=== PATIENT | male | born 1965 | race Caucasian/White ===

== ENCOUNTER 2017-11-02 16:00 | Emergency (ER) | payer SELFPAY ==
[~2017-11-02 16:00] MED LIST: ASPI325T PO; PRIL20TA2 PO
[2017-11-02 16:01] VITALS: BP 132/79; PULSE 84; RESP 16; TEMP 97.3; O2SAT 99
[2017-11-02 16:15] VITALS: BP 134/74; PULSE 84; RESP 22; O2SAT 98
[2017-11-02] MEDS ORDERED: ASPIRIN 81 MG CHEW TAB PO ONE (16:30)
[2017-11-02] MEDS ORDERED: SODIUM CHLORIDE 0.9% FLUSH 10 ML FLUSH IVF PRN (16:30)
--- NOTE | 2017-11-02 16:34 | PD ---
HPI Chief Complaint: Respiratory Symptoms Time Seen by Provider: 16:11 Travel History International Travel<30 days: No Contact w/Intl Traveler<30days: No Traveled to known affect area: No History of Present Illness HPI 52-year-old male presents to the emergency room for evaluation of nonradiating chest pain, shortness of breath, headache. Patient describes the chest pain as the feeling when you overexert yourself and your chest feels tight/burning. Pain started after sleeping for 5 hours in a room that was just cleaned with bleach. He has associated nausea without vomiting. Denies any history of heart disease. He has one stent that was placed while they were in his heart but not because he had an ME. He has aortic valve replacement. He was diagnosed with COPD but states he believes the diagnosis was also because he does well without medications. Patient still smokes. He is supposed to take metformin, lisinopril, and amlodipine that he is about to run out of his medication because he is traveling. Normally lives in [place] but is moving to [place]. Patient has been sick with a nonproductive cough for the past week. He denies fever, chills, sore throat, or worsening of his chronic nasal congestion. PFSH Past Medical History Cardiac Catheterization: Yes Cardiovascular Problems: Yes Diabetes: Yes (TYPE II ) Patient Takes Glucophage: No Respiratory: Yes Past Surgical History Other Surgery: Yes (LT. ARM SX.) Social History Alcohol Use: Yes (5 DRINKS A DAY) Tobacco Use: Yes (1PPD) Substance Use: No Allergies-Medications (Allergen,Severity, Reaction): Coded Allergies: No Known Allergies (Verified Allergy, Mild, 11/02/17) Reported Meds & Prescriptions Reported Meds & Active Scripts Active Tessalon Perles (Benzonatate) 100 Mg Cap 100 Mg PO TID PRN Ventolin Hfa 18 GM Inh (Albuterol Sulfate) 90 Mcg/Act Aer 2 Puff INH Q6H PRN Review of Systems Except as stated in HPI: all other systems reviewed are Neg Physical Exam Narrative GENERAL: Well-nourished, well-developed male in no acute distress. Afebrile. Ambulatory. SKIN: Focused skin assessment warm/dry. HEAD: Normocephalic. EYES: No scleral icterus. No injection or drainage. NECK: Supple, trachea midline. No JVD or lymphadenopathy. CARDIOVASCULAR: Regular rate and rhythm without murmurs, gallops, or rubs. RESPIRATORY: Breath sounds equal bilaterally. No accessory muscle use. No crackles, rales, wheezes, or rhonchi. PSYCHIATRIC: No delusional thought processes. No hallucinations. Data Data Last Documented VS Vital Signs Date Time Temp Pulse Resp B/P (MAP) Pulse Ox O2 Delivery O2 Flow Rate FiO2 11/02/17 16:51 98 Nasal Cannula 2.00 11/02/17 16:15 84 22 11/02/17 16:01 97.3 Orders Orders Electrocardiogram (11/02/17 16:22) Ckmb (Isoenzyme) Profile (11/02/17 16:22) Complete Blood Count With Diff (11/02/17 16:22) Comprehensive Metabolic Panel (11/02/17 16:22) Magnesium (Mg) (11/02/17 16:22) Prothrombin Time / Inr (Pt) (11/02/17 16:22) Act Partial Throm Time (Ptt) (11/02/17 16:22) Troponin I (11/02/17 16:22) Ecg Monitoring (11/02/17 16:22) Bilateral Bp Monitoring (11/02/17 16:22) Iv Access Insert/Monitor (11/02/17 16:22) Oximetry (11/02/17 16:22) Oxygen Administration (11/02/17 16:22) Aspirin Chew (Aspirin Chew) (11/02/17 16:30) Sodium Chloride 0.9% Flush (Ns Flush) (11/02/17 16:30) Chest, Pa & Lat (11/02/17 16:22) Methylprednisolone So Succ Inj (Solumedr (11/02/17 18:00) Insulin Human Regular Inj (Novolin R Inj (11/02/17 18:15) Albuterol-Ipratropium Neb (Duoneb Neb) (11/02/17 18:15) Labs Laboratory Tests Test 11/02/17 16:50 White Blood Count 8.9 TH/MM3 Red Blood Count 4.78 MIL/MM3 Hemoglobin 15.4 GM/DL Hematocrit 43.4 % Mean Corpuscular Volume 90.7 FL Mean Corpuscular Hemoglobin 32.2 PG Mean Corpuscular Hemoglobin Concent 35.5 % Red Cell Distribution Width 13.2 % Platelet Count 193 TH/MM3 Mean Platelet Volume 8.4 FL Neutrophils (%) (Auto) 56.2 % Lymphocytes (%) (Auto) 35.4 % Monocytes (%) (Auto) 6.4 % Eosinophils (%) (Auto) 1.5 % Basophils (%) (Auto) 0.5 % Neutrophils # (Auto) 5.0 TH/MM3 Lymphocytes # (Auto) 3.1 TH/MM3 Monocytes # (Auto) 0.6 TH/MM3 Eosinophils # (Auto) 0.1 TH/MM3 Basophils # (Auto) 0.0 TH/MM3 CBC Comment DIFF FINAL Differential Comment Prothrombin Time 10.2 SEC Prothromb Time International Ratio 1.0 RATIO Activated Partial Thromboplast Time 27.1 SEC Blood Urea Nitrogen 11 MG/DL Creatinine 1.40 MG/DL Random Glucose 442 MG/DL Total Protein 6.9 GM/DL Albumin 3.4 GM/DL Calcium Level 8.9 MG/DL Magnesium Level 1.8 MG/DL Alkaline Phosphatase 124 U/L Aspartate Amino Transf (AST/SGOT) 11 U/L Alanine Aminotransferase (ALT/SGPT) 31 U/L Total Bilirubin 0.3 MG/DL Sodium Level 134 MEQ/L Potassium Level 3.9 MEQ/L Chloride Level 101 MEQ/L Carbon Dioxide Level 25.4 MEQ/L Anion Gap 8 MEQ/L Estimat Glomerular Filtration Rate 53 ML/MIN Total Creatine Kinase 86 U/L Troponin I LESS THAN 0.02 NG/ML MDM Medical Decision Making Medical Screen Exam Complete: Yes Emergency Medical Condition: Yes Medical Record Reviewed: Yes Differential Diagnosis Bleach inhalation, reactive airway disease, asthma, COPD exacerbation Narrative Course 52-year-old male with history of hypertension, COPD, and diabetes presents to the emergency room for evaluation of chest pain, shortness of breath, and headache after sleeping for 5 hours in a room that was just cleaned with bleach. Patient has been diagnosed with COPD but states symptoms are well controlled and he does not use or need inhalers. He has had an associated upper respiratory infection for the past week. Denies any history of fevers. States upon waking from his nap, he had severe symptoms the worst of which is shortness of breath. Patient is well-appearing in the emergency room. Resting comfortably in bed. Vital signs stable. Lungs sounds clear and equal bilaterally. IV access established and basic labs obtained. CBC is completely unremarkable. CMP shows elevated creatinine of 1.4 and glucose of 442. Patient is nondiabetic and been off of his medications for several weeks. He was given insulin in the ED. Troponin is less than 0.02. EKG shows. Chest x- ray shows bronchitis/bronchiolitis which is probably a mixture of today's reactive airway disease and recent bronchitis. Patient was given 125 mg Solu- Medrol IV and 1 DuoNeb in the ED. Prior to DuoNeb, patient stated that he had things to do and would like to leave. I have no concern for cardiac etiology of pain, symptoms are likely due to bleach inhalation and bronchitis so patient is stable for discharge. He will be discharged with refill of his Tessalon Perles, albuterol inhaler. Given diabetes and acute kidney injury, he will not be discharged with prednisone warm and foreign. Patient was encouraged to follow up with his PCP to manage diabetes. He understands and agrees to plan. Diagnosis Primary Impression: Reactive airway disease that is not asthma Additional Impression: Bronchitis Referrals: Primary Care Physician Additional Instructions: Rest and drink plenty of fluids. Avoid high carb/sugar diet. Inhaler as directed, as needed for shortness of breath. Tessalon Perles as directed, as needed for cough. Follow-up with a PCP for management of chronic diabetes. Return for worsening symptoms. Med/Other Pt SpecificInfo: Prescription(s) given Scripts Benzonatate (Tessalon Perles) 100 Mg Cap 100 MG PO TID Y for COUGH, #15 CAP 0 Refills Prov: Marycruz Diaz DO 11/02/17 Albuterol 18 GM Inh (Ventolin Hfa 18 GM Inh) 90 Mcg/Act Aer 2 PUFF INH Q6H Y for SHORTNESS OF BREATH, #1 INHALER 0 Refills Prov: Marycruz Diaz DO 11/02/17 Disposition: 01 DISCHARGE HOME Condition: Stable Karina Rios Nov 02, 2017 16:34
[2017-11-02 16:51] VITALS: O2SAT 98
[2017-11-02 17:20] LABS: BASOPHIL % 0.5 % (0.0-2.0); EOSINOPHIL # 0.1 TH/MM3 (0-0.4); EOSINOPHIL % 1.5 % (0.0-4.0); HEMATOCRIT 43.4 % (39.0-51.0); HEMOGLOBIN 15.4 GM/DL (13.0-17.0); LYMPH % 35.4 % (9.0-44.0); LYMPHOCYTE # 3.1 TH/MM3 (1.0-4.8); MEAN CELL VOLUME 90.7 FL (80.0-100.0); MEAN CORPUSCULAR HEMOGLOBIN 32.2 PG (27.0-34.0); MEAN CORPUSCULAR HGB CONC 35.5 % (32.0-36.0); MEAN PLATELET VOLUME 8.4 FL (7.0-11.0); MONO % 6.4 % (0.0-8.0); MONOCYTE # 0.6 TH/MM3 (0-0.9); NEUT % 56.2 % (16.0-70.0); PLATELET COUNT 193 TH/MM3 (150-450); RED BLOOD COUNT 4.78 MIL/MM3 (4.50-5.90); RED CELL DISTRIBUTION WIDTH 13.2 % (11.6-17.2); WHITE BLOOD COUNT 8.9 TH/MM3 (4.0-11.0)
[2017-11-02 17:28] LABS: PROTHROMBIN TIME - PATIENT 10.2 SEC (9.8-11.6)
--- NOTE | 2017-11-02 17:43 | RADRPT ---
EXAM DATE/TIME: 11/02/2017 17:22 [facility] COMPARISON: No previous studies available for comparison. INDICATIONS : Cough. MEDICAL HISTORY : Diabetes mellitus type II. SURGICAL HISTORY : Valve replacement. ENCOUNTER: Initial ACUITY: 1 day PAIN SCORE: 0/10 LOCATION: Bilateral chest FINDINGS: PA and lateral views of the chest demonstrate the lungs to be symmetrically aerated without evidence of mass, infiltrate or effusion. Peribronchial thickening noted. The cardiomediastinal contours are unremarkable. Prosthetic heart valve and median sternotomy wires. Osseous structures are intact. CONCLUSION: Peribronchial thickening suggesting bronchitis/bronchiolitis. Chris Remy Jr., MD on November 02, 2017 at 17:30 Board Certified Radiologist. This report was verified electronically.
[2017-11-02 17:48] LABS: ALBUMIN 3.4 GM/DL (3.4-5.0); ALKALINE PHOSPHATASE 124 U/L (45-117); ALT (GPT) 31 U/L (12-78); AST (GOT) 11 U/L (15-37); BICARBONATE 25.4 MEQ/L (21.0-32.0); BLOOD UREA NITROGEN 11 MG/DL (7-18); CALCIUM 8.9 MG/DL (8.5-10.1); CHLORIDE 101 MEQ/L (98-107); GLOMERULAR FILTRATION RATE 53 ML/MIN (>89); MAGNESIUM 1.8 MG/DL (1.5-2.5); SODIUM (NA) 134 MEQ/L (136-145); TOTAL BILIRUBIN ADULT 0.3 MG/DL (0.2-1.0); TOTAL PROTEIN 6.9 GM/DL (6.4-8.2); TROPONIN I LESS THAN 0.02 NG/ML (0.02-0.05)
[2017-11-02 17:50] LABS: GLUCOSE,RANDOM 442 MG/DL (74-106)
[2017-11-02] MEDS ORDERED: methylPREDNISolone SOD SUCC 125 MG/2 ML VIAL IV PUSH ONE (18:00)
[2017-11-02] MEDS ORDERED: VENTAER INH (18:06)
[2017-11-02] MEDS ORDERED: BENZ100 PO (18:06)
[2017-11-02] MEDS ORDERED: INSULIN HUMAN REGULAR 1,000 UNITS/10 ML VIAL SQ ONE (18:15)
[2017-11-02] MEDS ORDERED: RESP: ALBUTEROL 2.5 MG/IPRATROPIUM 0.5 MG NEB (SCH) NEB ONE (18:15)
[2017-11-02] MEDS ORDERED: METF1000 PO (18:19)
--- NOTE | 2017-11-02 20:49 | EKG ---
Date Performed: 11/02/2017 Time Performed: 16:51:16 PTAGE: 52 years EKG: Sinus rhythm NONSPECIFIC ST & T-WAVE ABNORMALITY BORDERLINE ECG Compared to prior electrocardiogram, Nonspecific T wave changes are more marked PREVIOUS TRACING : 07/26/2008 03.04 DOCTOR: Matthias Garcia Interpretating Date/Time 11/02/2017 20:49:12
== END 2017-11-02 19:00 | disposition home or self-care (01) ==
LOC: NEPC 16:00
DX: J44.9 Chronic obstructive pulmonary disease, unspecified (principal); F17.210 Nicotine dependence, cigarettes, uncomplicated; R51 Headache; E11.9 Type 2 diabetes mellitus without complications
CPT/HCPCS: 71020; 80053; 82550; 83735; 84484; 85025; 85610; 85730; 93005; 94664; 96374; 96375; 99285; J1815; J2930

== ENCOUNTER 2017-12-02 03:16 | Observation (INO) | payer SELFPAY ==
[~2017-12-02 03:16] MED LIST changes: -ASPI325T PO; +BENZ100 PO; -PRIL20TA2 PO; +VENTAER INH
[2017-12-02 03:19] VITALS: BP 155/87; PULSE 71; RESP 18; TEMP 97.6; O2SAT 99
[2017-12-02] MEDS ORDERED: ASPIRIN 325 MG TAB PO ONE (04:00)
--- NOTE | 2017-12-02 04:03 | PD ---
HPI Chief Complaint: Chest Pain Time Seen by Provider: 03:54 Travel History International Travel<30 days: No Contact w/Intl Traveler<30days: No Traveled to known affect area: No History of Present Illness HPI 52yo M with PMH of CAD s/p cardiac stent 4 years ago, valve repair 2 years ago, HTN presents to the ED with c/o midsternal chest pain. Chest pain is pressure like, intermittent and nonradiating. Associated with nausea. Denies any fever , sob, vomiting, abdominal pain, focal weakness or numbness. Pt also with mild headache and said he always have this headache when his blood pressure is high. Pt has been noncompliant with his blood pressure medication, said he takes amlodipine and losartan. Has not had any stress test for at least 2 years. Does not have a acid maker here. PFSH Past Medical History Cardiac Catheterization: Yes Cardiovascular Problems: Yes Diabetes: Yes Patient Takes Glucophage: No Diminished Hearing: No Respiratory: Yes Past Surgical History Other Surgery: Yes (LT. ARM SX.) Social History Alcohol Use: Yes (5 DRINKS A DAY) Tobacco Use: Yes (1PPD) Substance Use: No Allergies-Medications (Allergen,Severity, Reaction): Coded Allergies: No Known Allergies (Verified Allergy, Mild, 12/02/17) Reported Meds & Prescriptions Reported Meds & Active Scripts Active Amlodipine (Amlodipine Besylate) 5 Mg Tab 5 Mg PO DAILY Losartan (Losartan Potassium) 100 Mg Tab 100 Mg PO DAILY Glyburide 5 Mg Tab 5 Mg PO BID Take with meals at the same time each day Metformin (Metformin HCl) 500 Mg Tab 500 Mg PO BIDPC Atorvastatin (Atorvastatin Calcium) 20 Mg Tab 20 Mg PO HS Review of Systems Except as stated in HPI: all other systems reviewed are Neg Physical Exam Narrative GENERAL: 52yo M not in distress. SKIN: Focused skin assessment warm/dry. HEAD: Atraumatic. Normocephalic. EYES: Pupils equal and round. No scleral icterus. No injection or drainage. ENT: No nasal bleeding or discharge. Mucous membranes pink and moist. NECK: Trachea midline. No JVD. CARDIOVASCULAR: Regular rate and rhythm. No murmur appreciated. RESPIRATORY: No accessory muscle use. Clear to auscultation. Breath sounds equal bilaterally. GASTROINTESTINAL: Abdomen soft, non-tender, nondistended. MUSCULOSKELETAL: No obvious deformities. No clubbing. No cyanosis. No edema. NEUROLOGICAL: Awake and alert. No obvious cranial nerve deficits. Motor grossly within normal limits. Normal speech. PSYCHIATRIC: Appropriate mood and affect; insight and judgment normal. Data Data Last Documented VS Vital Signs Date Time Temp Pulse Resp B/P (MAP) Pulse Ox O2 Delivery O2 Flow Rate FiO2 12/02/17 03:35 96 Room Air 12/02/17 03:19 97.6 71 18 155/87 (109) Orders Orders Basic Metabolic Panel (Bmp) (12/02/17 03:54) Complete Blood Count With Diff (12/02/17 03:54) Magnesium (Mg) (12/02/17 03:54) Prothrombin Time / Inr (Pt) (12/02/17 03:54) Act Partial Throm Time (Ptt) (12/02/17 03:54) Troponin I (12/02/17 03:54) Chest, Single Ap (12/02/17 03:54) Aspirin (Aspirin) (12/02/17 04:00) Nitroglycerin Sl (Nitrostat Sl) (12/02/17 04:00) Amlodipine (Norvasc) (12/02/17 04:15) Activity Bed Rest With Brp (12/02/17 05:12) Vital Signs (Adult) Q4H (12/02/17 05:12) Cardiac Rhythm .As Directed (12/02/17 05:12) Notify Dr: Other .PRN (12/02/17 05:12) Notify Parameters (12/02/17 05:12) Resp Oxygen Nasal Cannula (12/02/17 ) Ckmb (Isoenzyme) Profile (12/02/17 05:12) Troponin I (12/02/17 05:12) Electrocardiogram (12/02/17 05:12) Electrocardiogram (12/02/17 08:12) ^ Obtain (12/02/17 05:12) Sodium Chloride 0.9% Flush (Ns Flush) (12/02/17 05:15) Sodium Chloride 0.9% Flush (Ns Flush) (12/02/17 09:00) Meat And Seafood Manager / Telemetry [email or web address] (12/02/17 05:12) Admit Order (Ed Use Only) (12/02/17 05:12) CKMB (12/02/17 09:34) CKMB% (12/02/17 09:34) Labs Laboratory Tests Test 12/02/17 04:19 White Blood Count 9.0 TH/MM3 Red Blood Count 4.88 MIL/MM3 Hemoglobin 15.7 GM/DL Hematocrit 44.7 % Mean Corpuscular Volume 91.6 FL Mean Corpuscular Hemoglobin 32.3 PG Mean Corpuscular Hemoglobin Concent 35.2 % Red Cell Distribution Width 13.6 % Platelet Count 201 TH/MM3 Mean Platelet Volume 8.1 FL Neutrophils (%) (Auto) 50.9 % Lymphocytes (%) (Auto) 38.0 % Monocytes (%) (Auto) 8.7 % Eosinophils (%) (Auto) 1.7 % Basophils (%) (Auto) 0.7 % Neutrophils # (Auto) 4.6 TH/MM3 Lymphocytes # (Auto) 3.4 TH/MM3 Monocytes # (Auto) 0.8 TH/MM3 Eosinophils # (Auto) 0.1 TH/MM3 Basophils # (Auto) 0.1 TH/MM3 CBC Comment DIFF FINAL Differential Comment Prothrombin Time 10.0 SEC Prothromb Time International Ratio 1.0 RATIO Activated Partial Thromboplast Time 27.1 SEC Blood Urea Nitrogen 9 MG/DL Creatinine 0.96 MG/DL Random Glucose 134 MG/DL Calcium Level 8.8 MG/DL Magnesium Level 1.8 MG/DL Sodium Level 141 MEQ/L Potassium Level 3.6 MEQ/L Chloride Level 107 MEQ/L Carbon Dioxide Level 27.1 MEQ/L Anion Gap 7 MEQ/L Estimat Glomerular Filtration Rate 82 ML/MIN Troponin I LESS THAN 0.02 NG/ML MDM Medical Decision Making Medical Screen Exam Complete: Yes Emergency Medical Condition: Yes Interpretation(s) EKG: Sinus bradycardia at 59bpm. Normal axis. Mild ST depression II, III, aVF. Unchanged from prior. Differential Diagnosis ACS vs. GERD vs. pneumonia vs. musculoskeletal pain Narrative Course 52yo M with typical chest pain. Pt was given aspirin and sublingual nitro. BP 155/87 and pt said that is high for him. Pt given amlodipine 5mg. Pt reevaluated at bedside and said his headache and chest pain had resolved. CXR negative. Will admit to chest pain center for serial EKG and cardiac enzymes. Diagnosis Primary Impression: Chest pain Qualified Codes: R07.9 - Chest pain, unspecified Admitting Information Admitting Physician Requests: Observation Scripts Amlodipine (Amlodipine) 5 Mg Tab 5 MG PO DAILY for Blood Pressure Management, #30 TAB 0 Refills Prov: Quan Valero 12/02/17 Losartan (Losartan) 100 Mg Tab 100 MG PO DAILY for Blood Pressure Management, #30 TAB 0 Refills Prov: Quan Valero 12/02/17 Glyburide (Glyburide) 5 Mg Tab 5 MG PO BID for Blood Sugar Management, #60 TAB 0 Refills Take with meals at the same time each day Prov: Quan Valero 12/02/17 Metformin (Metformin) 500 Mg Tab 500 MG PO BIDPC for Blood Sugar Management, #60 TAB 0 Refills Prov: Quan Valero 12/02/17 Atorvastatin (Atorvastatin) 20 Mg Tab 20 MG PO HS for Cholesterol Management, #30 TAB 0 Refills Prov: Quan Valero 12/02/17 Marycruz Diaz DO Dec 02, 2017 04:03
[2017-12-02] MEDS ORDERED: amLODIPine BESYLATE 5 MG TAB PO ONE (04:15)
[2017-12-02] MEDS: NITROGLYCERIN 0.4 MG SL 25 TABS/BTL SL SCH ×3 (04:26→07:32)
[2017-12-02 04:34] LABS: AUTOMATED NEUTROPHIL # 4.6 TH/MM3 (1.8-7.7); BASOPHIL # 0.1 TH/MM3 (0-0.2); BASOPHIL % 0.7 % (0.0-2.0); EOSINOPHIL # 0.1 TH/MM3 (0-0.4); EOSINOPHIL % 1.7 % (0.0-4.0); HEMATOCRIT 44.7 % (39.0-51.0); HEMOGLOBIN 15.7 GM/DL (13.0-17.0); LYMPHOCYTE # 3.4 TH/MM3 (1.0-4.8); MEAN CELL VOLUME 91.6 FL (80.0-100.0); MEAN CORPUSCULAR HEMOGLOBIN 32.3 PG (27.0-34.0); MEAN CORPUSCULAR HGB CONC 35.2 % (32.0-36.0); MEAN PLATELET VOLUME 8.1 FL (7.0-11.0); MONO % 8.7 % (0.0-8.0); MONOCYTE # 0.8 TH/MM3 (0-0.9); NEUT % 50.9 % (16.0-70.0); PLATELET COUNT 201 TH/MM3 (150-450); RED BLOOD COUNT 4.88 MIL/MM3 (4.50-5.90); RED CELL DISTRIBUTION WIDTH 13.6 % (11.6-17.2)
[2017-12-02 04:48] LABS: TROPONIN I LESS THAN 0.02 NG/ML (0.02-0.05)
[2017-12-02 04:51] LABS: BICARBONATE 27.1 MEQ/L (21.0-32.0); BLOOD UREA NITROGEN 9 MG/DL (7-18); CALCIUM 8.8 MG/DL (8.5-10.1); CHLORIDE 107 MEQ/L (98-107); CREATININE 0.96 MG/DL (0.60-1.30); GLOMERULAR FILTRATION RATE 82 ML/MIN (>89); GLUCOSE,RANDOM 134 MG/DL (74-106); MAGNESIUM 1.8 MG/DL (1.5-2.5); SODIUM (NA) 141 MEQ/L (136-145)
--- NOTE | 2017-12-02 05:00 | RADRPT ---
EXAM DATE/TIME: 12/02/2017 04:14 [facility] COMPARISON: CHEST PA & LAT, November 02, 2017, 17:22. INDICATIONS : Chest pain. MEDICAL HISTORY : Diabetes mellitus type II. SURGICAL HISTORY : Valve replacement. ENCOUNTER: Initial ACUITY: 2 days PAIN SCORE: 5/10 LOCATION: Bilateral chest FINDINGS: The patient is status post sternotomy. Heart size is normal. The lungs are grossly clear. There appea rs be a small metallic density projecting over the lateral lower left chest. This was present previou sly. CONCLUSION: No acute disease. Aj Brasher MD on December 02, 2017 at 4:57 Board Certified Radiologist. This report was verified electronically.
[2017-12-02] MEDS ORDERED: SODIUM CHLORIDE 0.9% FLUSH 10 ML FLUSH IV FLUSH PRN (05:15)
[2017-12-02 05:48] VITALS: BP 142/78; PULSE 59; O2SAT 98
[2017-12-02 08:32] VITALS: O2SAT 96
[2017-12-02] MEDS ORDERED: SODIUM CHLORIDE 0.9% FLUSH 10 ML FLUSH IV FLUSH SCH (09:00)
[2017-12-02 09:35] VITALS: BP 125/62; PULSE 58; RESP 16; O2SAT 97
[2017-12-02 10:31] LABS: TROPONIN I LESS THAN 0.02 NG/ML (0.02-0.05)
[2017-12-02] MEDS ORDERED: AMLO5TAB2 PO (11:44)
[2017-12-02] MEDS ORDERED: LOSA100T PO (11:44)
[2017-12-02] MEDS ORDERED: ATOR20TA15 PO (11:44)
[2017-12-02] MEDS ORDERED: METF500T PO (11:44)
[2017-12-02] MEDS ORDERED: GLYB5TAB3 PO (11:44)
--- NOTE | 2017-12-02 11:44 | HHI.DCPOC ---
Discharge Care Plan Diagnosis: (1) Chest pain (2) CAD (coronary artery disease) (3) H/O heart artery stent (4) Hypertension (5) Tobacco abuse Goals to Promote Your Health * To prevent worsening of your condition and complications * To maintain your health at the optimal level Directions to Meet Your Goals Take your medications as prescribed Follow your dietary instruction Follow activity as directed Keep your appointments as scheduled Take your immunizations and boosters as scheduled If your symptoms worsen call your PCP, if no PCP go to Urgent Care Center or Emergency Room Smoking is Dangerous to Your Health. Avoid second hand smoke Call the 24-hour hour crisis hotline for domestic abuse at Quan Valero Dec 02, 2017 11:44
--- NOTE | 2017-12-02 11:53 | HHI.HP ---
HPI Service ANALYTICAL LAB ANALYST Primary Care Physician No Primary Care Physician Chief Complaint HIGH BP resulting in H/A and CHEST PRESSURE History of Present Illness 52 YO white male with known CAD and MVR has been off his diabetic and BP meds for the last month due to lack of funds. Normally his BP is well controlled between 112 and 120ies but off meds it went up to 212/115 yesterday. This precipitated a [place] and diffuse pressure in his chest. This began about noon and lasted over 12 hrs until his BP resolved in the ED. The pressure (he specifically denies any pain) was perhaps 2/10 diffuse and non radiating. He had no associated symptoms and no relieving factors. He has a STENT placed about 4 years ago while in [place] and a MVR for bicuspid mitral valve about 2 years ago in [place]. He is willing to take his Meds but has no prescription and no money to see a doctor to get a renewal. He also complains of episodes of disorientation or distorted vision on occasions which lasts about a minute. He believes these are "mini strokes". Past Family Social History Allergies: Coded Allergies: No Known Allergies (Verified Allergy, Mild, 12/02/17) Past Medical History Diabetes HTN CAD with stent Mitral valve disease with MVR Past Surgical History STENT MVR Removal of bursa both elbows Gallbladder removal Reported Medications Reported Meds & Active Scripts Active Tessalon Perles (Benzonatate) 100 Mg Cap 100 Mg PO TID PRN Ventolin Hfa 18 GM Inh (Albuterol Sulfate) 90 Mcg/Act Aer 2 Puff INH Q6H PRN Losartan 100 daily not taking Amlodipine 5 daily not taking ASA 325 daily Glipizide not taking Metformin not taking Active Ordered Medications Current Medications Medications (Trade) Dose Ordered Sig/Jatinder Route Start Time Stop Time Status Last Admin (NS Flush) 2 ml UNSCH PRN IV FLUSH 12/02/17 05:15 (NS Flush) 2 ml BID IV FLUSH 12/02/17 09:00 12/02/17 09:12 Family History Mother 73 LW Father 75 LW Sibs LW Social History Tobacco 1 PPD Alcohol denies any use (in spite of ED record) Unemployed forklift truck operator Physical Exam Vital Signs Vital Signs Date Time Temp Pulse Resp B/P (MAP) Pulse Ox O2 Delivery O2 Flow Rate FiO2 12/02/17 09:35 58 16 125/62 (83) 97 Room Air 12/02/17 05:48 59 142/78 (99) 98 Room Air 12/02/17 03:35 96 Room Air 12/02/17 03:19 97.6 71 18 155/87 (109) 99 Room Air Physical Exam GENERAL WNWD white male resting quietly with sheet over head sleeping HEENT MARIA R, EOMI, shaved head, edentulous upper but MM moist and no lesions Neck No JVD, masses nodes or bruit Chest Well healed sternotomy. Clear with no RWR CV RSR with 2/6 systolic M radiating to left axilla and a 2/6 M radiating along aortic distribution. No [place] or rub Abd Soft NT, no GR or masses Ext No CCE Neuro Cranial intact, motor equal motion all four Psych Appropriate affect and mood Laboratory Laboratory Tests Test 12/02/17 04:19 12/02/17 09:34 White Blood Count 9.0 Red Blood Count 4.88 Hemoglobin 15.7 Hematocrit 44.7 Mean Corpuscular Volume 91.6 Mean Corpuscular Hemoglobin 32.3 Mean Corpuscular Hemoglobin Concent 35.2 Red Cell Distribution Width 13.6 Platelet Count 201 Mean Platelet Volume 8.1 Neutrophils (%) (Auto) 50.9 Lymphocytes (%) (Auto) 38.0 Monocytes (%) (Auto) 8.7 Eosinophils (%) (Auto) 1.7 Basophils (%) (Auto) 0.7 Neutrophils # (Auto) 4.6 Lymphocytes # (Auto) 3.4 Monocytes # (Auto) 0.8 Eosinophils # (Auto) 0.1 Basophils # (Auto) 0.1 CBC Comment DIFF FINAL Differential Comment Prothrombin Time 10.0 Prothromb Time International Ratio 1.0 Activated Partial Thromboplast Time 27.1 Blood Urea Nitrogen 9 Creatinine 0.96 Random Glucose 134 Calcium Level 8.8 Magnesium Level 1.8 Sodium Level 141 Potassium Level 3.6 Chloride Level 107 Carbon Dioxide Level 27.1 Anion Gap 7 Estimat Glomerular Filtration Rate 82 Troponin I LESS THAN 0.02 LESS THAN 0.02 Total Creatine Kinase 178 Creatine Kinase MB 1.5 Result Diagram: 12/02/1741812/02/17418 Imaging Negative Course BP down with no further chest discomfort Issue is running out of meds as he is well controlled normally on his meds Will refill meds and disch him to establish with local PCP Reminded of importance of cessation of smoking Caprini VTE Risk Assessment Caprini VTE Risk Assessment: No/Low Risk (score <= 1) Caprini Risk Assessment Model Point Value = 1 Point Value = 2 Point Value = 3 Point Value = 5 Age 41-60 Minor surgery BMI > 25 kg/m2 Swollen legs Varicose veins or History of unexplained or recurrent spontaneous Oral contraceptives or hormone replacement Sepsis (< 1 month) Serious lung disease, including pneumonia (< 1 month) Abnormal pulmonary function Acute myocardial infarction Congestive heart failure (< 1 month) History of inflammatory bowel disease Medical patient at bed rest Age 61-74 Arthroscopic surgery Major open surgery (> 45 min) Laparoscopic surgery (> 45 min) Malignancy Confined to bed (> 72 hours) Immobilizing plaster cast Central venous access Age >= 75 History of VTE Family history of VTE Factor V Leiden Prothrombin [id number] Lupus anticoagulant Anticardiolipin antibodies Elevated serum homocysteine Heparin-induced thrombocytopenia Other congenital or acquired thrombophilia Stroke (< 1 month) Elective arthroplasty Hip, pelvis, or leg fracture Acute spinal cord injury (< 1 month) Prophylaxis Regimen Total Risk Factor Score Risk Level Prophylaxis Regimen 0-1 Low Early ambulation 2 Moderate Order ONE of the following: *Sequential Compression Device (SCD) *Heparin 5000 units SQ BID 3-4 Higher Order ONE of the following medications: *Heparin 5000 units SQ TID *Enoxaparin/Lovenox 40 mg SQ daily (WT < 150 kg, CrCl > 30 mL/min) *Enoxaparin/Lovenox 30 mg SQ daily (WT < 150 kg, CrCl > 10-29 mL/min) *Enoxaparin/Lovenox 30 mg SQ BID (WT < 150 kg, CrCl > 30 mL/min) AND/OR *Sequential Compression Device (SCD) 5 or more Highest Order ONE of the following medications: *Heparin 5000 units SQ TID (Preferred with Epidurals) *Enoxaparin/Lovenox 40 mg SQ daily (WT < 150 kg, CrCl > 30 mL/min) *Enoxaparin/Lovenox 30 mg SQ daily (WT < 150 kg, CrCl > 10-29 mL/min) *Enoxaparin/Lovenox 30 mg SQ BID (WT < 150 kg, CrCl > 30 mL/min) AND *Sequential Compression Device (SCD) Toney Alfred MD Dec 02, 2017 11:53
--- NOTE | 2017-12-02 12:54 | EKG ---
Date Performed: 12/02/2017 Time Performed: 03:36:53 PTAGE: 52 years EKG: SINUS BRADYCARDIA NONSPECIFIC T-WAVE ABNORMALITY BORDERLINE ECG NO SIG CHANGE PREVIOUS TRACING : 11/02/2017 16.51 DOCTOR: Toney Alfred Interpretating Date/Time 12/02/2017 12:53:10
--- NOTE | 2017-12-02 21:29 | EKG ---
Date Performed: 12/02/2017 Time Performed: 10:39:12 PTAGE: 52 years EKG: Sinus rhythm WITH SINUS ARRHYTHMIA NONSPECIFIC T-WAVE ABNORMALITY BORDERLINE ECG PREVIOUS TRACING : 12/02/2017 03.36 Since previous tracing, no significant change noted DOCTOR: Kirit Scanlon Interpretating Date/Time 12/02/2017 21:29:24
== END 2017-12-02 12:13 | disposition home or self-care (01) ==
LOC: NEPE 03:16 → NEDA 05:15
PROVIDERS: ADMIT Internal Medicine Cardiovascular Disease; ATTEND Internal Medicine Cardiovascular Disease
DX: R07.89 Other chest pain (principal); I25.10 Atherosclerotic heart disease of native coronary artery without angina pectoris; I10 Essential (primary) hypertension; R11.0 Nausea; R51 Headache; E11.9 Type 2 diabetes mellitus without complications; I05.9 Rheumatic mitral valve disease, unspecified; F17.210 Nicotine dependence, cigarettes, uncomplicated; Z91.14 Patient's other noncompliance with medication regimen; Z95.5 Presence of coronary angioplasty implant and graft; Z95.2 Presence of prosthetic heart valve; Z79.84 Long term (current) use of oral hypoglycemic drugs
CPT/HCPCS: 71045; 80048; 82550; 82552; 83735; 84484; 85025; 85610; 85730; 93005; 99285; G0378